=== PATIENT | female | born 1970 | race African-American/Black ===

== ENCOUNTER 2020-07-25 08:41 | Day surgery (SDC) | payer OTHER ==
[2020-07-21 12:45] VITALS: BMI 52.8
[2020-07-25] MEDS ORDERED: MIDAZOLAM HCL 2 MG/2 ML SINGLE DOSE VIAL ONE (09:19)
[2020-07-25] MEDS ORDERED: PROPOFOL 20 ML ONE ×3 (09:19)
[2020-07-25] MEDS ORDERED: LIDOCAINE HCL/PF 2% SDV 5ML VIAL ONE (09:19)
[2020-07-25 10:02] VITALS: TEMP 98.2
[2020-07-25 10:26] VITALS: BP 112/76; PULSE 94
== END 2020-07-25 10:27 | disposition home or self-care (01) ==
LOC: FASU-ENDO 08:41
PROVIDERS: ATTEND Internal Medicine Gastroenterology
PROC: 0DBL8ZX Excision of Transverse Colon, Via Natural or Artificial Opening Endoscopic, Diagnostic (ICD-10-PCS; principal; 2020-07-25 09:34)
DX: Z12.11 Encounter for screening for malignant neoplasm of colon (principal); K57.30 Diverticulosis of large intestine without perforation or abscess without bleeding; D12.3 Benign neoplasm of transverse colon
CPT/HCPCS: 88305-TC